=== PATIENT | male | born 2000 | race Two or more races ===

== ENCOUNTER 2022-01-26 22:05 | Emergency (ER) | payer SELFPAY ==
[~2022-01-26] VITALS: Ht 177.8 cm; Wt 85.0 kg
[2022-01-26 23:21] LABS: Urine Bacteria NONE SEEN /hpf (None Seen); Urine Blood 1+ /uL (Negative); Urine Mucus FEW (None Seen); Urine Specific Gravity 1.029 (1.001-1.035); Urine WBC 1 /hpf (0 - 3)
[2022-01-27] MEDS ORDERED: PRED20TA2 PO (06:27)
[2022-01-27] MEDS ORDERED: AZIT250T9 PO (06:27)
[2022-01-27 06:39] VITALS: BP 110/70
== END 2022-01-27 06:39 | disposition home or self-care (01) ==
LOC: ER 22:05
DX: J20.9 Acute bronchitis, unspecified (principal); J45.909 Unspecified asthma, uncomplicated
CPT/HCPCS: 71045; 81001; 93005

== ENCOUNTER 2022-11-23 15:20 | Emergency (ER) | payer SELFPAY ==
[~2022-11-23] VITALS: Ht 177.8 cm; Wt 81.8 kg
[~2022-11-23 15:20] MED LIST: AZIT-43 PO; PRED20TA2 PO
[2022-11-23 15:47] LABS: Basophils # (auto) 0 10 ^3/uL (0-0.2); Basophils % (auto) 0.6 % (0.0-2.0); Eosinophils # (auto) 0.2 10 ^3/uL (0-0.8); Eosinophils % (auto) 2.8 % (0.0-7.0); Hematocrit 46.6 % (41.0-53.0); Hemoglobin 15.7 g/dL (13.5-17.5); Lymphocytes # (auto) 2.4 10 ^3/uL (0.4-5.4); Lymphocytes % (auto) 33.2 % (10.0-50.0); Mean Corpuscular Hemoglobin 29.1 pg (28.0-32.0); Mean Corpuscular Hgb Conc. 33.7 g/dL (32.0-36.0); Mean Corpuscular Volume 86.3 fL (80.0-100.0); Monocytes # (auto) 0.6 10 ^3/uL (0-1.3); Monocytes % (auto) 8.4 % (0.0-12.0); Neutrophils # (auto) 4.1 10 ^3/uL (1.6-8.6); Nucleated Red Blood Cells % 0.1 %; Red Blood Cells 5.39 10^6/uL (4.5-5.90); Red Cell Distribution Width 12.9 % (11.8-14.3); White Blood Cell 7.4 10^3/uL (4.4-10.8)
[2022-11-23 16:06] LABS: Albumin 4.6 g/dL (3.4-5.0); Calcium 9.6 mg/dL (8.5-10.1); Magnesium 2.4 mg/dL (1.6-2.6); Potassium 4.6 mmol/L (3.5-5.1)
[2022-11-23 16:08] LABS: INR 1.14 (0.9-1.15)
[2022-11-23 16:09] LABS: BUN/Creatinine Ratio 23.7 (10.0-20.0); Bilirubin, Total 1.8 mg/dL (0.2-1.0); Total Protein 8.4 g/dL (6.4-8.2)
[2022-11-23 16:13] LABS: Urine Bacteria NONE SEEN /hpf (None Seen); Urine Blood Negative /uL (Negative); Urine Mucus FEW (None Seen); Urine Specific Gravity 1.029 (1.001-1.035); Urine WBC 2 /hpf (0 - 3)
[2022-11-23 16:18] LABS: Barbiturate Scree,Urine NEGATIVE (NEGATIVE); Benzodiazephine Screen, Urine NEGATIVE (NEGATIVE); Cocaine Screen, Urine NEGATIVE (NEGATIVE); Opiate Scree,Urine NEGATIVE (NEGATIVE); Phencyclidine Screen, Urine NEGATIVE (NEGATIVE)
[2022-11-23 16:27] LABS: Cannabinoid Screen, Urine POSITIVE (NEGATIVE)
[2022-11-23 16:42] LABS: Amphetamine Screen, Urine POSITIVE (NEGATIVE)
[2022-11-23 16:52] VITALS: BP 118/72; PULSE 67; RESP 18; TEMP 97.8; O2SAT 98
== END 2022-11-23 16:57 | disposition home or self-care (01) ==
LOC: ER 15:20
DX: R07.89 Other chest pain (principal); J45.909 Unspecified asthma, uncomplicated; F12.90 Cannabis use, unspecified, uncomplicated; Z98.890 Other specified postprocedural states
CPT/HCPCS: 36415; 71045; 80053; 80307; 81001; 83735; 83880; 84484; 85025; 85610; 85730; 93005